=== PATIENT | female | born 1940 | race Caucasian/White ===

== ENCOUNTER → 2021-10-06 09:03 | Outpatient (CLI) | payer MEDICARE, OTHER, SELFPAY ==
--- NOTE | 2021-10-06 09:06 | DI.MG.S_ITS ---
BILATERAL DIGITAL SCREENING MAMMOGRAM 3D/2D WITH CAD: 10/06/2021 CLINICAL: Routine screening. Comparison is made to exams dated: 07/26/2020 mammogram, 07/26/2019 mammogram, 07/21/2019 mammogram, and 07/20/2018 mammogram - outside facility. There are scattered fibroglandular elements in both breasts. Current study was also evaluated with a Computer Aided Detection (CAD) system. No significant masses, calcifications, or other findings are seen in either breast. There has been no significant interval change. IMPRESSION: NEGATIVE There is no mammographic evidence of malignancy. A 1 year screening mammogram is recommended. This exam was interpreted at Station ID: [id number]. NOTE: For mammograms, a report in lay terms will be sent to the patient. Approximately 15% of breast malignancies will not be visualized mammographically. In the management of a palpable breast mass, a negative mammogram must not discourage biopsy of a clinically suspicious lesion. Electronically Signed By: Jason caballero/drew:10/06/2021 12:24:52 letter sent: Normal Exam ACR BI-RADS Category 1: Negative 3341F
== END ==
PROVIDERS: PCP Internal Medicine; Referring Provider Obstetrics & Gynecology; Visit Provider Obstetrics & Gynecology
DX: Z12.31 Encounter for screening mammogram for malignant neoplasm of breast (principal)
CPT/HCPCS: 77063; 77067

== ENCOUNTER → 2021-11-03 10:11 | Outpatient (CLI) | payer MEDICARE, OTHER, SELFPAY ==
--- NOTE | 2021-11-03 10:17 | DI.RAD.S_ITS ---
PROCEDURE: XR CHEST 2V INDICATIONS: followup left pleural effusion TECHNIQUE: 2 views of the chest were acquired. COMPARISON: None. FINDINGS: Surgical changes and devices: None. Lungs and pleura: There is a small left pleural effusion. Consildative radiopacities are present at the left lung base. No pneumothorax. Mediastinum: Mediastinal contours are normal. Heart size is normal. Bones and chest wall: No suspicious bony abnormalities. Soft tissues appear unremarkable. IMPRESSION: Small left pleural effusion and left basilar consolidation. No prior comparisons are available at the time of this dictation. Dictated by: Kaci Gonzalez M.D. on 11/03/2021 at 13:18 Approved by: Kaci Gonzalez M.D. on 11/03/2021 at 13:23
[2021-11-03 11:45] LABS: Hematocrit 34.2 % (36-46); Hemoglobin 11.7 g/dL (12.0-16.0); Mean Corpuscular HGB Conc 34.3 % (30-36); Mean Corpuscular Hemoglobin 29.3 PG (26-34); Mean Corpuscular Volume 85.6 fL (80-100); Platelet Count 187 X10^3/uL (150-400); Red Cell Distribution Width 15.6 % (11.6-14.8); White Blood Cell Count 6.5 X10^3/uL (4.5-11.0)
[2021-11-03 12:04] LABS: Alanine Aminotransferase 16 IU/L (<35); Albumin 4.5 g/dL (3.5-5.0); Albumin Globulin Ratio 1.4 (1.0-2.8); Alkaline Phosphatase 38 U/L (38-126); Aspartate Aminotransferase 15 IU/L (14-36); BUN Creatinine Ratio 21.1 (6-22); Bilirubin Total 0.9 mg/dL (0.2-1.3); Blood Urea Nitrogen 16 mg/dL (7-17); Carbon Dioxide 31 mmol/L (22-32); Chloride 104 mmol/L (98-107); Cholesterol 148 mg/dL (140-199); Estimated Glomerular Filt Rate > 60 mL/min (>60); Globulin 3.2 g/dL (1.7-4.1); Glucose 90 mg/dL (80-110); HDL Cholesterol 44 mg/dL (40-60); HEMOLYSIS < 15 (0-50); LDL Cholesterol Calculated 73 mg/dL (<100); Sodium 142 mmol/L (137-145); Total Protein 7.7 g/dL (6.3-8.2); Triglycerides 154 mg/dL (35-150)
[2021-11-03 12:22] LABS: HEMOLYSIS < 15 (0-50); Iron 65 ug/dL (37-170)
[2021-11-03 12:37] LABS: Percent Iron Saturation 23 % (15-50); Total Iron Binding Capacity 283 ug/dL (265-497); Transferrin 209 mg/dL (206-381)
[2021-11-03 12:39] LABS: Vitamin D 25 Hydroxy (D3) 46.1 ng/mL (30.0-100.0)
[2021-11-03 12:46] LABS: Vitamin B12 867 pg/mL (239-931)
== END ==
PROVIDERS: PCP Internal Medicine; Referring Provider Internal Medicine; Visit Provider Internal Medicine
DX: J90 Pleural effusion, not elsewhere classified (principal); D64.9 Anemia, unspecified; E53.8 Deficiency of other specified B group vitamins; E78.2 Mixed hyperlipidemia; I48.20 Chronic atrial fibrillation, unspecified; I10 Essential (primary) hypertension
CPT/HCPCS: 36415; 71046; 80053; 80061; 82306; 82607; 83540; 83550; 84443; 85027

== ENCOUNTER → 2022-03-11 10:45 | Outpatient (CLI) | payer MEDICARE, OTHER, SELFPAY ==
[2022-03-11 12:06] LABS: COVID19 -Nasal RAPID Negative (Negative)
--- NOTE | 2022-03-11 18:00 | DI.NM.S_ITS ---
DATE OF SERVICE: 03/11/2022 PROCEDURE PERFORMED: Pharmacologic vasodilator stress and rest myocardial perfusion imaging with gating to assess ejection fraction and regional wall motion. ORDERING PROVIDER: Dr. Ciro Bartlett. INDICATIONS: The patient is an 81-year-old female with exertional dyspnea, chronic atrial fibrillation, and known coronary artery calcification. CARDIAC STRESS: Per protocol, 0.4 mg of regadenoson was infused with a normal hemodynamic response. She had no chest discomfort or other anginal symptoms. Her resting ECG shows atrial fibrillation at 70-85 BPM with mild, nonspecific inferolateral ST-segment abnormalities that become accentuated with stress but remain nonspecific. There were no other arrhythmias. Per protocol, 26.2 millicuries of technetium-99m Myoview was injected and she was imaged 20 minutes later using a gated SPECT acquisition protocol. Earlier in the day while at rest, she had been injected with 12.2 millicuries of technetium-99m Myoview and was imaged 20 minutes later, again using a gated SPECT protocol. FINDINGS: 1. Raw data: There is fair myocardial tracer uptake with obvious breast attenuation that crosses the anterior portion of the left ventricle, more on the stress images than the resting images. There was no significant motion artifact. The lung/heart ratio is normal at 0.29. The TID ratio was normal at 1.13. 2. Quantitated gated SPECT: Post-stress ejection fraction is estimated at 69%, although gating is somewhat dyssynchronous, putting these values somewhat in question. There are no focal wall motion abnormalities and specifically the anterior wall has brisk contractility. The resting ejection fraction is estimated at 79%, although visually appears similar to the post-stress ejection fraction, again with a somewhat choppy gating sequence. Resting end-diastolic volume is normal at 84 mL. The right ventricular free wall has significant uptake of tracer which can be an indication of a right ventricular overload condition. 3. Myocardial perfusion imaging: Post-stress supine images shows a fairly normal myocardial perfusion pattern with a mild defect in the mid anterior wall, sparing the apex in a pattern that would be consistent with breast attenuation artifact, supported by its complete resolution on the prone images. The resting images show a similar perfusion pattern with a slight, but insignificant improvement. Given its resolution on the prone images, this most likely reflects breast attenuation artifact. IMPRESSION: 1. Normal myocardial perfusion study. 2. Partially reversible mid anterior defect that resolves on prone imaging, consistent with breast attenuation artifact. There is no compelling evidence for myocardial ischemia or previous myocardial infarction. 3. Probable normal left ventricular systolic function without focal wall motion abnormality and normal left ventricular volumes. There is increased tracer uptake in the right ventricular free wall which can be an indication of a right ventricular overload condition but clinical correlation is recommended. 4. No angina with pharmacologic vasodilator stress. There is mild accentuation of baseline ST-segment abnormalities but no compelling ECG evidence for myocardial ischemia. She was in atrial fibrillation throughout the study without other arrhythmias. Robert October - Celia/gloria doc#: [id number]/job#: [id number] dd: 03/11/2022 17:22:00 dt: 03/11/2022 17:47:00 DICTATING /COPIES TO: Duke Hamilton MD COPIES MNE: FANG;
== END ==
PROVIDERS: PCP Internal Medicine; Referring Provider Nurse Practitioner Family; Visit Provider Internal Medicine Cardiovascular Disease
DX: I50.32 Chronic diastolic (congestive) heart failure (principal); I25.10 Atherosclerotic heart disease of native coronary artery without angina pectoris; I25.84 Coronary atherosclerosis due to calcified coronary lesion; R06.00 Dyspnea, unspecified; I48.20 Chronic atrial fibrillation, unspecified; Z20.822 Contact with and (suspected) exposure to COVID-19
CPT/HCPCS: 78452; 87635; 93017; A9502; J2785

== ENCOUNTER → 2022-04-02 08:30 | Outpatient (CLI) | payer MEDICARE, OTHER, SELFPAY ==
[2022-04-02 11:08] LABS: BUN Creatinine Ratio 28.2 (6-22); Blood Urea Nitrogen 20 mg/dL (7-17); Calcium 8.9 mg/dL (8.4-10.2); Carbon Dioxide 24 mmol/L (22-32); Chloride 106 mmol/L (98-107); Cholesterol 155 mg/dL (140-199); Estimated Glomerular Filt Rate > 60 mL/min (>60); Glucose 107 mg/dL (80-110); HDL Cholesterol 37 mg/dL (40-60); HEMOLYSIS < 15 (0-50); LDL Cholesterol Calculated 78 mg/dL (<100); Potassium 4.3 mmol/L (3.4-5.1); Sodium 141 mmol/L (137-145); Triglycerides 199 mg/dL (35-150)
[2022-04-02 11:25] LABS: Digoxin 0.8 ng/mL (0.8-2.0)
== END ==
PROVIDERS: PCP Internal Medicine; Referring Provider Internal Medicine Cardiovascular Disease; Visit Provider Internal Medicine Cardiovascular Disease
DX: I50.32 Chronic diastolic (congestive) heart failure (principal); E78.5 Hyperlipidemia, unspecified
CPT/HCPCS: 36415; 80048; 80061; 80162

== ENCOUNTER → 2022-04-22 10:19 | Outpatient (CLI) | payer MEDICARE, OTHER, SELFPAY | PROVIDERS: PCP Internal Medicine; Visit Provider Nurse Practitioner Family | DX: R30.0 Dysuria (principal) | CPT/HCPCS: 87077; 87086; 87186 ==

== ENCOUNTER → 2022-05-20 10:33 | Outpatient (CLI) | payer MEDICARE, OTHER, SELFPAY | PROVIDERS: PCP Internal Medicine; Referring Provider Internal Medicine; Visit Provider Internal Medicine | DX: Z78.0 Asymptomatic menopausal state (principal); Z13.820 Encounter for screening for osteoporosis; M85.852 Other specified disorders of bone density and structure, left thigh; Z90.710 Acquired absence of both cervix and uterus | CPT/HCPCS: 77080 ==

== ENCOUNTER → 2022-06-16 10:23 | Outpatient (CLI) | payer MEDICARE, OTHER, SELFPAY | PROVIDERS: PCP Internal Medicine; Visit Provider Registered Nurse | DX: R30.0 Dysuria (principal) | CPT/HCPCS: 87077; 87086; 87186 ==

== ENCOUNTER → 2022-06-23 08:52 | Outpatient (CLI) | payer MEDICARE, OTHER, SELFPAY ==
[2022-06-23 09:46] LABS: Cholesterol 172 mg/dL (140-199); HDL Cholesterol 47 mg/dL (40-60); LDL Cholesterol Calculated 89 mg/dL (<100); Triglycerides 182 mg/dL (35-150)
[2022-06-23 10:03] LABS: Digoxin < 0.4 ng/mL (0.8-2.0)
== END ==
PROVIDERS: PCP Internal Medicine; Referring Provider Nurse Practitioner Family; Visit Provider Nurse Practitioner Family
DX: E78.5 Hyperlipidemia, unspecified (principal); I48.20 Chronic atrial fibrillation, unspecified; I25.10 Atherosclerotic heart disease of native coronary artery without angina pectoris; I25.84 Coronary atherosclerosis due to calcified coronary lesion
CPT/HCPCS: 36415; 80061; 80162

== ENCOUNTER → 2022-10-12 09:09 | Outpatient (CLI) | payer MEDICARE, OTHER, SELFPAY ==
--- NOTE | 2022-10-12 | DI.MG.S_ITS ---
BILATERAL DIGITAL SCREENING MAMMOGRAM 3D/2D WITH CAD: 10/12/2022 CLINICAL: Routine screening. Family history of breast cancer. Comparison is made to exams dated: 10/06/2021 mammogram - , 07/26/2020 mammogram, and 07/26/2019 mammogram - outside facility. Both breasts are heterogeneously dense, which may obscure small masses (category c / 51-75% glandular tissue). Current study was also evaluated with a Computer Aided Detection (CAD) system. No significant masses, calcifications, or other findings are seen in either breast. There has been no significant interval change. IMPRESSION: NEGATIVE There is no mammographic evidence of malignancy. A 1 year screening mammogram is recommended. Based on the Tyrer Cuzick model (a risk assessment model) the patient's lifetime risk is 0.5% and her 10 year risk is 0.0%. According to the ACR, ACS, and NCCN guidelines, an annual breast MRI exam along with mammogram is recommended if the patient's lifetime risk is 20% or greater. This exam was interpreted at Station ID: [id number]. NOTE: For mammograms, a report in lay terms will be sent to the patient. Approximately 15% of breast malignancies will not be visualized mammographically. In the management of a palpable breast mass, a negative mammogram must not discourage biopsy of a clinically suspicious lesion. Electronically Signed By: Kaci emerson/drew:10/12/2022 16:25:10 letter sent: Normal Exam ACR BI-RADS Category 1: Negative 3341F
== END ==
PROVIDERS: PCP Internal Medicine; Referring Provider Internal Medicine; Visit Provider Internal Medicine
DX: Z12.31 Encounter for screening mammogram for malignant neoplasm of breast (principal)
CPT/HCPCS: 77063; 77067

== ENCOUNTER → 2022-11-04 09:23 | Outpatient (CLI) | payer MEDICARE, OTHER, SELFPAY ==
[2022-11-04 11:14] LABS: Hematocrit 33.8 % (36-46); Hemoglobin 11.5 g/dL (12.0-16.0); Mean Corpuscular HGB Conc 34.2 % (30-36); Mean Corpuscular Hemoglobin 29.6 PG (26-34); Mean Corpuscular Volume 86.6 fL (80-100); Platelet Count 177 X10^3/uL (150-400); Red Cell Distribution Width 14.8 % (11.6-14.8); White Blood Cell Count 6.5 X10^3/uL (4.5-11.0)
[2022-11-04 11:43] LABS: Alanine Aminotransferase 17 IU/L (<35); Albumin 4.1 g/dL (3.5-5.0); Albumin Globulin Ratio 1.5 (1.0-2.8); Alkaline Phosphatase 32 U/L (38-126); Aspartate Aminotransferase 14 IU/L (14-36); BUN Creatinine Ratio 20.6 (6-22); Bilirubin Total 0.7 mg/dL (0.2-1.3); Blood Urea Nitrogen 14 mg/dL (7-17); Calcium 8.9 mg/dL (8.4-10.2); Carbon Dioxide 30 mmol/L (22-32); Chloride 103 mmol/L (98-107); Cholesterol 131 mg/dL (140-199); Estimated Glomerular Filt Rate > 60 mL/min (>60); Globulin 2.8 g/dL (1.7-4.1); Glucose 93 mg/dL (80-110); HDL Cholesterol 44 mg/dL (40-60); HEMOLYSIS < 15 (0-50); LDL Cholesterol Calculated 66 mg/dL (<100); Potassium 4.5 mmol/L (3.4-5.1); Sodium 140 mmol/L (137-145); Total Protein 6.9 g/dL (6.3-8.2); Triglycerides 103 mg/dL (35-150)
== END ==
PROVIDERS: PCP Internal Medicine; Referring Provider Internal Medicine; Visit Provider Internal Medicine
DX: D64.9 Anemia, unspecified (principal); E03.9 Hypothyroidism, unspecified; E78.2 Mixed hyperlipidemia; I10 Essential (primary) hypertension; I50.32 Chronic diastolic (congestive) heart failure
CPT/HCPCS: 36415; 80053; 80061; 84443; 85027

== ENCOUNTER → 2023-02-04 08:45 | Outpatient (CLI) | payer MEDICARE, OTHER, SELFPAY ==
[2023-02-04 10:12] LABS: Digoxin 0.4 ng/mL (0.8-2.0)
== END ==
PROVIDERS: PCP Internal Medicine; Referring Provider Internal Medicine Cardiovascular Disease; Visit Provider Internal Medicine Cardiovascular Disease
DX: I48.20 Chronic atrial fibrillation, unspecified (principal)
CPT/HCPCS: 36415; 80162

== ENCOUNTER → 2023-05-12 08:47 | Outpatient (CLI) | payer MEDICARE, OTHER, SELFPAY ==
[2023-05-12 09:29] LABS: Hematocrit 34.1 % (36-46); Hemoglobin 11.8 g/dL (12.0-16.0); Mean Corpuscular HGB Conc 34.7 % (30-36); Mean Corpuscular Volume 86.2 fL (80-100); Platelet Count 171 X10^3/uL (150-400); Red Blood Cell Count 3.95 X10^6/uL (4.0-5.2); Red Cell Distribution Width 14.5 % (11.6-14.8); White Blood Cell Count 5.8 X10^3/uL (4.5-11.0)
[2023-05-12 09:57] LABS: Blood Urea Nitrogen 18 mg/dL (7-17); Calcium 9.1 mg/dL (8.4-10.2); Carbon Dioxide 24 mmol/L (22-32); Chloride 106 mmol/L (98-107); Estimated Glomerular Filt Rate > 60 mL/min (>60); Glucose 108 mg/dL (80-110); HEMOLYSIS < 15 (0-50); Potassium 3.7 mmol/L (3.4-5.1); Sodium 140 mmol/L (137-145)
[2023-05-12 10:07] LABS: Digoxin 0.4 ng/mL (0.8-2.0)
[2023-05-12 10:39] LABS: Vitamin B12 782 pg/mL (239-931)
[2023-05-12 11:46] LABS: TSH w/ Reflex to FT4 2.13 uIU/mL (0.47-4.68)
== END ==
PROVIDERS: PCP Internal Medicine; Referring Provider Internal Medicine; Visit Provider Internal Medicine
DX: I48.20 Chronic atrial fibrillation, unspecified (principal); D64.9 Anemia, unspecified; E03.9 Hypothyroidism, unspecified; E53.8 Deficiency of other specified B group vitamins
CPT/HCPCS: 36415; 80048; 80162; 82607; 84443; 85027

== ENCOUNTER → 2023-10-20 14:02 | Outpatient (CLI) | payer MEDICARE, OTHER, SELFPAY ==
--- NOTE | 2023-10-20 14:03 | DI.MG.S_ITS ---
BILATERAL DIGITAL SCREENING MAMMOGRAM 3D/2D WITH CAD: 10/20/2023 CLINICAL: Routine screening. Family history of breast cancer. Comparison is made to exams dated: 10/12/2022 mammogram, 10/06/2021 mammogram - [facility], and 07/26/2020 mammogram - outside facility. Both breasts are heterogeneously dense, which may obscure small masses (category c / 51-75% glandular tissue). Current study was also evaluated with a Computer Aided Detection (CAD) system. No significant masses, calcifications, or other findings are seen in either breast. There has been no significant interval change. IMPRESSION: NEGATIVE There is no mammographic evidence of malignancy. A 1 year screening mammogram is recommended. Based on the Tyrer Cuzick model (a risk assessment model) the patient's lifetime risk is 0.3% and her 10 year risk is 0.0%. According to the ACR, ACS, and NCCN guidelines, an annual breast MRI exam along with mammogram is recommended if the patient's lifetime risk is 20% or greater. This exam was interpreted at Station ID: [id number]. NOTE: For mammograms, a report in lay terms will be sent to the patient. Approximately 15% of breast malignancies will not be visualized mammographically. In the management of a palpable breast mass, a negative mammogram must not discourage biopsy of a clinically suspicious lesion. Electronically Signed By: Kaci emerson/drew:10/20/2023 16:25:52 letter sent: Normal Exam ACR BI-RADS Category 1: Negative 3341F
== END ==
LOC: MAMMO 14:03
PROVIDERS: PCP Internal Medicine; Referring Provider Internal Medicine; Visit Provider Internal Medicine
DX: Z12.31 Encounter for screening mammogram for malignant neoplasm of breast (principal); Z80.3 Family history of malignant neoplasm of breast; R92.333 Mammographic heterogeneous density, bilateral breasts
CPT/HCPCS: 77063; 77067

== ENCOUNTER → 2023-11-15 09:09 | Outpatient (CLI) | payer MEDICARE, OTHER, SELFPAY ==
--- NOTE | 2023-11-15 09:11 | DI.RAD.S_ITS ---
PROCEDURE: XR CHEST 2V INDICATIONS: dyspnea TECHNIQUE: 2 views of the chest were acquired. COMPARISON: [facility], CR, XR CHEST 2V, 11/03/2021, 10:37. FINDINGS: Surgical changes and devices: None. Lungs and pleura: Lungs are clear. No pleural effusions or pneumothorax. Mediastinum: Mediastinal contours are normal. Heart size is enlarged. Bones and chest wall: No suspicious bony abnormalities. Soft tissues appear unremarkable. IMPRESSION: No acute pulmonary process. Dictated by: Juli Stone M.D. on 11/15/2023 at 15:29 Approved by: Juli Stone M.D. on 11/15/2023 at 15:30
[2023-11-15 10:54] LABS: Hematocrit 33.8 % (36-46); Hemoglobin 11.5 g/dL (12.0-16.0); Mean Corpuscular HGB Conc 34.1 % (30-36); Mean Corpuscular Hemoglobin 29.6 PG (26-34); Mean Corpuscular Volume 86.7 fL (80-100); Platelet Count 167 X10^3/uL (150-400); Red Blood Cell Count 3.89 X10^6/uL (4.0-5.2); White Blood Cell Count 5.4 X10^3/uL (4.5-11.0)
[2023-11-15 11:17] LABS: Digoxin 0.5 ng/mL (0.8-2.0); HEMOLYSIS < 15 (0-50); Iron 67 ug/dL (37-170)
[2023-11-15 11:25] LABS: Percent Iron Saturation 25 % (15-50); Total Iron Binding Capacity 268 ug/dL (265-497); Transferrin 197 mg/dL (206-381)
[2023-11-15 11:47] LABS: TSH w/ Reflex to FT4 1.76 uIU/mL (0.47-4.68)
[2023-11-15 12:24] LABS: Alanine Aminotransferase 17 IU/L (<35); Albumin 4.3 g/dL (3.5-5.0); Albumin Globulin Ratio 1.6 (1.0-2.8); Alkaline Phosphatase 39 U/L (38-126); Aspartate Aminotransferase 16 IU/L (14-36); BUN Creatinine Ratio 24.4 (6-22); Bilirubin Total 0.9 mg/dL (0.2-1.3); Blood Urea Nitrogen 19 mg/dL (7-17); Calcium 8.6 mg/dL (8.4-10.2); Carbon Dioxide 28 mmol/L (22-32); Chloride 106 mmol/L (98-107); Cholesterol 139 mg/dL (140-199); Estimated Glomerular Filt Rate > 60 mL/min (>60); Globulin 2.7 g/dL (1.7-4.1); Glucose 87 mg/dL (80-110); HDL Cholesterol 48 mg/dL (40-60); HEMOLYSIS < 15 (0-50); LDL Cholesterol Calculated 68 mg/dL (<100); Potassium 4.1 mmol/L (3.4-5.1); Sodium 141 mmol/L (137-145); Triglycerides 115 mg/dL (35-150)
[2023-11-15 13:03] LABS: Ferritin 155 ng/mL (11-264)
[2023-11-15 13:18] LABS: Vitamin B12 847 pg/mL (239-931)
== END ==
PROVIDERS: PCP Internal Medicine; Referring Provider Internal Medicine; Visit Provider Internal Medicine
DX: I50.32 Chronic diastolic (congestive) heart failure (principal); J90 Pleural effusion, not elsewhere classified; E03.9 Hypothyroidism, unspecified; E78.2 Mixed hyperlipidemia; I48.20 Chronic atrial fibrillation, unspecified; E53.8 Deficiency of other specified B group vitamins; D50.9 Iron deficiency anemia, unspecified
CPT/HCPCS: 36415; 71046; 80053; 80061; 80162; 82607; 82728; 83540; 83550; 84443; 85027

== ENCOUNTER 2024-07-23 14:27 | Emergency (ER) | payer MEDICARE, OTHER, SELFPAY ==
[2024-07-23 14:51] VITALS: BP 129/58; PULSE 82; RESP 16; TEMP 35.7; O2SAT 99; BMI 23.5
--- NOTE | 2024-07-23 14:56 | DI.RAD.S_ITS ---
PROCEDURE: XR KNEE RT 3V INDICATIONS: unable to stand; atraumatic TECHNIQUE: 3 views of the knee were acquired. COMPARISON: None. FINDINGS: Bones: No fractures or dislocations. No suspicious bony lesions. Patellofemoral severe joint space narrowing particularly involving the lateral facet Soft tissues: Large joint effusion. No suspicious soft tissue calcifications. IMPRESSION: Patellofemoral arthritic joint space narrowing and large joint effusion Approved by: Jean-Pierre Cade M.D. on 07/23/2024 at 14:44
--- NOTE | 2024-07-23 14:57 | DI.US.S_ITS ---
PROCEDURE: US PERIPH VENOUS LOW EXTREM RT INDICATIONS: POSTERIOR RT KNEE PAIN TECHNIQUE: Real-time imaging, as well as color and pulse Doppler interrogation, were performed of the lower extremity deep veins from the inguinal ligament to the popliteal fossa, with documentation of the visualized calf veins. COMPARISON: None. FINDINGS: The common femoral, femoral, popliteal, and the visualized calf veins are normally compressible, and free of intraluminal thrombus. Color and pulse Doppler demonstrate normal phasic intraluminal flow. There is normal augmentation response to distal compression maneuver. IMPRESSION: No findings of lower extremity deep venous thrombosis. Approved by: Jean-Pierre Cade M.D. on 07/23/2024 at 14:41
[2024-07-23 17:45] VITALS: PULSE 80; RESP 20
[2024-07-23 17:46] VITALS: BP 165/76; PULSE 79; RESP 19; O2SAT 100
[2024-07-23 18:00] VITALS: BP 174/66; PULSE 79; RESP 19; O2SAT 99
[2024-07-23 18:03] VITALS: PULSE 80
--- NOTE | 2024-07-23 18:26 | ED_ITS ---
HPI - Extremity Problem General Chief complaint: Extremity Problem,Nontraumatic Stated complaint: Injured Right Knee Time Seen by Provider: 07/23/24 18:25 Source: patient and family Mode of arrival: Wheelchair History of Present Illness HPI Narrative: 83-year-old female past medical history of CHF AFib on Eliquis COPD not on chronic supplemental oxygen, hyperlipidemia hypertension comes into the ED from home with family for evaluation of knee pain leg swelling states that she injured her knee approximately a week ago, states it is the taken Tylenol but was only having mild relief states that it got worse yesterday and now states she feels like she is unable to bear weight on it. She states that this happened when she is good from seated position yesterday states that she felt like there was a pop to her right knee. She states that since then she has had worsening pain to the right knee. He denies any numbness weakness tingling to the leg itself. Has been compliant with her Eliquis. Denies any other injuries no falls no other symptoms at this time Related Data Home Medications Medication Instructions Recorded Confirmed apixaban 5 mg tablet (Eliquis) 5 mg PO BID 09/02/21 07/12/24 mecobalamin (vitamin B12) 1,000 1,000 mcg PO 3XW 09/02/21 07/12/24 mcg chewable tablet atorvastatin 20 mg tablet 20 mg PO DAILY 05/06/22 07/12/24 digoxin 125 mcg (0.125 mg) tablet 125 mcg PO Q OTHER DAY 05/06/22 07/12/24 cholecalciferol (vitamin D3) 25 25 mcg PO DAILY 11/04/22 07/12/24 mcg (1,000 unit) capsule Previous Rx's Medication Instructions Recorded candesartan 32 mg tablet 32 mg PO DAILY #90 tabs 11/03/21 carvedilol 12.5 mg tablet 12.5 mg PO BID #180 tabs 02/04/22 albuterol sulfate 90 mcg/actuation 2 puff inhalation Q6H PRN 05/06/22 aerosol inhaler shortness of breath or wheezing #25.5 grams tiotropium bromide 2.5 2 puff inhalation DAILY PRN 05/12/23 mcg/actuation mist for inhalation COPD/bronchiectasis #12 grams (Spiriva Respimat) fluoxetine 20 mg capsule 20 mg PO DAILY #90 caps 12/22/23 torsemide 10 mg tablet 10 mg PO DAILY #90 tabs 05/18/24 levothyroxine 25 mcg tablet 25 mcg PO DAILY #90 tabs 07/10/24 Allergies Allergy/AdvReac Type Severity Reaction Status Date / Time No Known Drug Allergies Allergy Verified 07/12/24 09:18 Review of Systems Review of Systems Narrative: General: Denies fever, chills, weight loss HEENT: Denies headache, eye drainage, eye irritation, head trauma, sore throat, voice change Cardiovascular: Denies any chest pain, palpitations, shortness of breath, tachycardia Respiratory: Denies any shortness of breath, cough, wheeze, stridor GI/: Denies any abdominal pain, nausea, vomiting, diarrhea, bright red blood per rectum, melanotic stools, urinary frequency, urinary retention, dysuria, hematuria MSK: Positive right knee swelling pain Skin: Denies any rashes, lesions, discoloration Neuro: Denies any headache, lightheadedness, dizziness, fainting, weakness Psych: Denies SI/HI Patient History Medical History Abnormal chest xray Acquired hypothyroidism Anemia, unspecified Asthma B12 deficiency Bronchiectasis Chronic atrial fibrillation Chronic diastolic CHF (congestive heart failure), NYHA class 1 COPD (chronic obstructive pulmonary disease) Coronary atherosclerosis Depression Depression, major, recurrent Essential hypertension Hearing loss History of colonic polyps Measles Mitral regurgitation Mixed hyperlipidemia Mumps Osteopenia Pleural effusion, left Primary osteoarthritis involving multiple joints Surgical History Anesthesia History of hysterectomy (~04/2016) History of tonsillectomy and adenoidectomy (~194) Family History Grandmother Diabetes mellitus Social History details: (Raul) 04/16, three grown children, 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[place], retired RN Smoking Status: Former smoker Smoking Status: Former smoker Exam Narrative Exam Narrative: General: Cooperative, comfortable, well-developed, not in acute distress HEENT: Normocephalic, atraumatic, PERRLA, normal sclera, eyelids normal, Neck: Active full range of motion, atraumatic Chest: Normal to inspection, negative crepitus, no overlying erythema ecchymosis Respiratory: Normal respiratory effort, not in acute respiratory distress, clear to auscultation bilaterally negative cough, wheeze, tachypnea, rhonchi, rales Cardiology: Regular rate rhythm negative gallop, murmur, rubs GI/: Normal to inspection, soft, nonrigid, no tenderness to palpation, exam deferred MSK: Patient with decreased active passive range of motion of the right knee secondary to pain but no micro motion tenderness no overlying erythema ecchymosis neurovascularly intact palpable pulses dorsalis pedis and posterior tibialis Skin: No rashes lesions noted Neuro: Alert awake oriented x3, moves all 4 extremities spontaneously, cranial nerves intact, able to answer all questions appropriately follows commands appropriately Psych: Cooperative, negative suicidal or homicidal ideations Initial Vital Signs Initial Vital Signs: Vital Signs Temperature 96.3 F L 07/23/24 14:51 Pulse Rate 82 07/23/24 14:51 Respiratory Rate 16 07/23/24 14:51 Blood Pressure 129/58 L 07/23/24 14:51 Pulse Oximetry 99 07/23/24 14:51 Oxygen Delivery Method Room Air 07/23/24 14:51 Course Orders Ordered: ED Orders 07/23/24 14:56 XR knee RT 3V Stat 07/23/24 14:57 US periph venous low extrem rt Stat Vital Signs Vital signs: Vital Signs - 8 hr 07/23/24 14:51 07/23/24 17:45 07/23/24 17:46 Temperature 96.3 F L Pulse Rate 82 80 79 Pulse Rate [Right Posterior Tibial] Respiratory Rate 16 20 19 Blood Pressure 129/58 L Pulse Oximetry 99 100 Oxygen Delivery Method Room Air 07/23/24 17:46 07/23/24 18:00 07/23/24 18:00 Temperature Pulse Rate 79 Pulse Rate [Right Posterior Tibial] Respiratory Rate 19 Blood Pressure 165/76 H 174/66 H Pulse Oximetry 99 Oxygen Delivery Method 07/23/24 18:03 Temperature Pulse Rate Pulse Rate [Right Posterior Tibial] 80 Respiratory Rate Blood Pressure Pulse Oximetry Oxygen Delivery Method MDM - Extremity (Nontraumatic) Differential Diagnosis Differential diagnosis: Likely other (DVT, fracture, ligamentous tear) Imaging Data Extremity x-ray #1: Radiologist's Impression: [address] [address] XRay Report Signed Patient: Barbara Jones MR#: [id number] : 1940 Acct:[id number] Age/Sex: 83 / F Date of Service: 07/23/24 Loc: ED Accession Number: [id number] Procedure: XR knee RT 3V Ordering Provider: Melissa Pratt D.O. PROCEDURE: XR KNEE RT 3V INDICATIONS: unable to stand; atraumatic TECHNIQUE: 3 views of the knee were acquired. COMPARISON: None. FINDINGS: Bones: No fractures or dislocations. No suspicious bony lesions. Patellofemoral severe joint space narrowing particularly involving the lateral facet Soft tissues: Large joint effusion. No suspicious soft tissue calcifications. IMPRESSION: Patellofemoral arthritic joint space narrowing and large joint effusion US - DVT: Radiologist's Impression: [address] [address] Ultrasound Report Signed Patient: Barbara Jones MR#: [id number] : 1940 Acct:[id number] Age/Sex: 83 / F Date of Service: 07/23/24 Loc: ED Accession Number: [id number] Procedure: US periph venous low extrem rt Ordering Provider: Melissa Pratt D.O. PROCEDURE: US PERIPH VENOUS LOW EXTREM RT INDICATIONS: POSTERIOR RT KNEE PAIN TECHNIQUE: Real-time imaging, as well as color and pulse Doppler interrogation, were performed of the lower extremity deep veins from the inguinal ligament to the popliteal fossa, with documentation of the visualized calf veins. COMPARISON: None. FINDINGS: The common femoral, femoral, popliteal, and the visualized calf veins are normally compressible, and free of intraluminal thrombus. Color and pulse Doppler demonstrate normal phasic intraluminal flow. There is normal augmentation response to distal compression maneuver. IMPRESSION: No findings of lower extremity deep venous thrombosis. MDM Narrative Medical decision making narrative: 83-year-old female with a history of AFib on Eliquis CHF hypertension hyperlipidemia COPD not requiring supplemental oxygen at baseline, hypothyroidism presents for right knee pain. States that she has been having intermittent knee pain swelling for the past week had some improvement with Tylenol but last night stood up and felt a ?pop to her right knee. She states that she had immediate pain in that area, has been unable to bear weight since then. But she denies falling. She denies any numbness weakness tingling to the lower extremity. On exam decreased active and passive range of motion of the right knee secondary to pain but no micro motion tenderness no overlying erythema ecchymosis. Patient had x-ray of the knee showing swelling but no fracture. Ultrasound without DVT. Patient without any signs symptoms of compartment syndrome, septic arthritis. Patient is afebrile neurovascularly intact lower extremity. She will be sent home in a knee immobilizer and instructed follow up with Orthopedic surgery in outpatient setting per granddaughter will be staying with her to help her get around her house. She was given strict return precautions she verbalized understanding of this and agrees to being discharged home with outpatient follow up Discharge Plan Departure Patient Disposition: Home Clinical Impression: Acute pain of right knee Instructions: How to Use a Knee Immobilizer Activity Restrictions/Additional Instructions: Please follow up with Orthopedic surgery and primary care Please read the discharge instructions sheet carefully and bring all papers to all doctor follow-up visits, as it may contain information that your doctor may want to see. Disease processes change and evolve, if your symptoms worsen or if you develop any new symptoms that are concerning to you please return for evaluation. Your evaluation today does not show any evidence of any life- threatening/serious illnesses requiring admission to the hospital or surgery. Please follow-up with your doctor for re-evaluation in approximately 1 day. Seek immediate medical attention for any worrisome symptoms. *If you do not have a primary care provider please contact the [facility] Resource line at [phone]. They will ask some questions about your medical history and help get you set up with a doctor in the community. Prescriptions: No Action fluoxetine 20 mg capsule 20 mg PO DAILY Qty: 90 3RF torsemide 10 mg tablet 10 mg PO DAILY Qty: 90 3RF levothyroxine 25 mcg tablet 25 mcg PO DAILY Qty: 90 3RF carvedilol 12.5 mg tablet 12.5 mg PO BID Qty: 180 3RF Rx Instructions: must administer with a meal/food candesartan 32 mg tablet 32 mg PO DAILY Qty: 90 3RF Eliquis 5 mg tablet 5 mg PO BID mecobalamin (vitamin B12) 1,000 mcg tablet,chewable 1,000 mcg PO 3XW atorvastatin 20 mg tablet 20 mg PO DAILY digoxin 125 mcg (0.125 mg) tablet 125 mcg PO Q OTHER DAY albuterol sulfate 90 mcg/actuation HFA aerosol inhaler 2 puff inhalation Q6H PRN (Reason: shortness of breath or wheezing) Qty: 25.5 3RF cholecalciferol (vitamin D3) 25 mcg (1,000 unit) capsule 25 mcg PO DAILY Spiriva Respimat 2.5 mcg/actuation mist 2 puff inhalation DAILY PRN (Reason: COPD/bronchiectasis) Qty: 12 3RF Referrals: Sly Vila MD [Primary Care Provider] - Aleksandr Borrego MD [Physician] - Stand Alone Forms: Patient Portal/API/Survey
[2024-07-23 19:23] VITALS: PULSE 78; RESP 18; O2SAT 97
== END 2024-07-23 19:30 | disposition home or self-care (01) ==
PROVIDERS: Emergency Provider Student in an Organized Health Care Education/Training Program; PCP Internal Medicine
DX: M25.561 Pain in right knee (principal); I48.91 Unspecified atrial fibrillation; Z79.01 Long term (current) use of anticoagulants; I50.9 Heart failure, unspecified; E78.5 Hyperlipidemia, unspecified; I10 Essential (primary) hypertension
CPT/HCPCS: 73562; 93971; 99282; 99283

== ENCOUNTER → 2024-07-26 15:39 | Outpatient (CLI) | payer MEDICARE, OTHER, SELFPAY ==
--- NOTE | 2024-07-26 15:41 | DI.MRI.S_ITS ---
PROCEDURE: MR KNEE RT WO CON INDICATIONS: R/O MENISCUS TEAR RIGHT KNEE TECHNIQUE: Noncontrast sagittal PD fast spin echo and T2 fast spin echo with fat saturation, sagittal 3-D FLASH with fat saturation; coronal T1 spin echo and PD fast spin echo with fat saturation, and axial PD fast spin echo with fat saturation through the knee. COMPARISON: None. FINDINGS: Image quality: Excellent. Menisci: In the medial meniscus, there is full-thickness radial tear of the posterior root (10:18). Additional small radial tear of the inner margin the medial meniscus body. Extrusion the medial meniscus body. The lateral meniscus is unremarkable. Cruciate ligaments: The anterior and posterior cruciate ligaments appear intact. Medial structures: Grade 1 sprain of the MCL. Lateral structures: The lateral collateral ligament, long and short heads of the biceps femoris tendon appear intact. The popliteus tendon appears normal; the popliteofibular ligament appears intact. The posterosuperior and anteroinferior popliteomeniscal fascicles appear intact. The arcuate and fabellofibular ligaments appear intact, on either side of the lateral inferior geniculate artery. Iliotibial band appears normal. Anterior structures: The quadriceps and patellar tendons appear intact. Superolateral Hoffa's fat pad edema, raising concern for patellar maltracking. Mild lateral tilt the patella. The medial and the lateral patellofemoral ligament are intact Bones and cartilage: In the patellofemoral compartment, there is full-thickness chondral denudation in the lateral patellar facet, with mild subchondral marrow edema. There is large area full-thickness chondral denudation in the lateral trochlea, with mild subchondral marrow edema. In the medial compartment, there is mild chondral irregularity in the weight-bearing portion of the medial condyle. In the lateral compartment, there is mild chondral thinning in the weight-bearing portion of the lateral femoral condyle. There is mild subchondral marrow edema at the tibial eminence, favor reactive. No acute fracture. Joint space: Moderate knee effusion with synovitis. No popliteal cyst. 6 mm T1 and T2 hypointense lesion posterior to the medial tibial plateau, concerning for loose body. Diffuse subcutaneous edema of the knee, most pronounced in the anterior knee. IMPRESSION: 1. Full-thickness radial tear of the posterior root of the medial meniscus. Reactive marrow edema in the tibial eminence. 2. Grade 1 sprain of the MCL. 3. Findings suggestive of patellar maltracking. 4. Severe, patellofemoral compartment predominant chondrosis. 5. Moderate knee effusion with synovitis. 6 mm loose body posterior to the medial tibial plateau. Dictated by: Ann Paz M.D. on 07/26/2024 at 16:48 Approved by: Ann Paz M.D. on 07/26/2024 at 16:59
== END ==
PROVIDERS: PCP Internal Medicine; Referring Provider Physician Assistant; Visit Provider Physician Assistant
DX: S83.241A Other tear of medial meniscus, current injury, right knee, initial encounter (principal); S83.411A Sprain of medial collateral ligament of right knee, initial encounter; M94.261 Chondromalacia, right knee; M25.461 Effusion, right knee; M65.961 Unspecified synovitis and tenosynovitis, right lower leg; X58.XXXA Exposure to other specified factors, initial encounter
CPT/HCPCS: 73721

== ENCOUNTER → 2024-08-24 08:05 | Outpatient (CLI) | payer MEDICARE, OTHER, SELFPAY ==
[2024-08-24 08:28] LABS: Hematocrit 33.8 % (36-46); Hemoglobin 11.4 g/dL (12.0-16.0); Mean Corpuscular HGB Conc 33.6 % (30-36); Mean Corpuscular Hemoglobin 28.6 PG (26-34); Mean Corpuscular Volume 85.1 fL (80-100); Platelet Count 178 X10^3/uL (150-400); Red Blood Cell Count 3.97 X10^6/uL (4.0-5.2); Red Cell Distribution Width 14.9 % (11.6-14.8)
[2024-08-24 08:58] LABS: Digoxin 0.6 ng/mL (0.8-2.0)
[2024-08-24 09:15] LABS: Aspartate Aminotransferase 15 IU/L (14-36); BUN Creatinine Ratio 23.1 (6-22); Blood Urea Nitrogen 18 mg/dL (7-17); Calcium 9.3 mg/dL (8.4-10.2); Carbon Dioxide 24 mmol/L (22-32); Chloride 103 mmol/L (98-107); Cholesterol 149 mg/dL (140-199); Estimated Glomerular Filt Rate > 60 mL/min (>60); Glucose 101 mg/dL (80-110); HDL Cholesterol 45 mg/dL (40-60); HEMOLYSIS < 15 (0-50); LDL Cholesterol Calculated 77 mg/dL (<100); Potassium 4.2 mmol/L (3.4-5.1); Sodium 139 mmol/L (137-145); Triglycerides 134 mg/dL (35-150)
[2024-08-24 10:03] LABS: TSH w/ Reflex to FT4 1.88 uIU/mL (0.47-4.68)
== END ==
PROVIDERS: PCP Internal Medicine; Referring Provider Internal Medicine; Visit Provider Internal Medicine
DX: D64.9 Anemia, unspecified (principal); E03.9 Hypothyroidism, unspecified; I50.32 Chronic diastolic (congestive) heart failure; E78.2 Mixed hyperlipidemia
CPT/HCPCS: 36415; 80048; 80061; 80162; 84443; 84450; 85027

== ENCOUNTER → 2024-11-13 11:39 | Outpatient (CLI) | payer MEDICARE, OTHER, SELFPAY ==
--- NOTE | 2024-11-13 11:40 | DI.MG.S_ITS ---
MM screening mammo BI: 11/13/2024. BI-RADS: 1 CLINICAL: 84-year old female for bilateral screening mammogram. No Tyrer-Cuzick risk score calculation due to patient's age being over 85 years old. No personal or first-degree family history of breast cancer. Current reported family history of breast cancer: maternal aunt's daughter. PRIOR EXAMS 10/20/2023, 10/12/2022, 10/06/2021. MAMMOGRAPHY TECHNIQUE: 2D and 3D (tomosynthesis) digital mammographic views obtained, with additional images as needed for full coverage. Current study was also evaluated with a Computer Aided Detection (CAD) system. DENSITY C. The breasts are heterogeneously dense, which may obscure small masses. MAMMOGRAPHY FINDINGS Bilateral: No suspicious mass, asymmetry, microcalcification, or other abnormality seen. IMPRESSION: * No evidence of malignancy. RECOMMENDATIONS Bilateral * Annual screening mammography. OVERALL ASSESSMENT CATEGORY BI-RADS-1: Negative. The [employer] recommends annual screening mammography beginning at age 40 for women with average risk of breast cancer. ELECTRONICALLY SIGNED: Jason Garcia M.D. on 11/13/2024 at 04:48:56 PM PT Interpreting Station ID: [id number]
== END ==
LOC: MAMMO 11:40
PROVIDERS: PCP Internal Medicine; Referring Provider Internal Medicine; Visit Provider Internal Medicine
DX: Z12.31 Encounter for screening mammogram for malignant neoplasm of breast (principal); Z80.3 Family history of malignant neoplasm of breast; R92.333 Mammographic heterogeneous density, bilateral breasts
CPT/HCPCS: 77063; 77067

== ENCOUNTER → 2025-03-02 08:07 | Outpatient (CLI) | payer MEDICARE, OTHER, SELFPAY ==
--- NOTE | 2025-03-02 08:09 | DI.ECHO.S_ITS ---
[facility] : : [id number] : [facility] : : [place], : : [place] [address] : : Phone: [phone] Echocardiogram Report + + :Name: NELIDA OCTOBER Study Date: 03/02/2025 Height: 64 in : :[facility] ReadingLocation: Weight: 133 lb : : Gender: Female BSA: 1.6 m2 : :: 1940 Age: 84 yrs BP: 108/43 mmHg: :Reason For Study: NONRHEUMATIC MITRAL VALVE REGURGITATION : :Ordering Physician: MARIPOSA, : :MARIANNE Performed By: Lv Weiss : :Referring: MARIANNE MONGE : + + Interpretation Summary The patient was in atrial fibrillation with heart rates between 56-85 bpm during the exam. The left ventricle is normal in size. The left ventricular ejection fraction is normal. The ejection fraction is estimated to be 60-65%. The right ventricle is normal in size and function. There is mild to moderate mitral regurgitation. Compared to the prior echo study, there has been no change in the severity of mitral regurgitation. There is mild to moderate tricuspid regurgitation. Compared to the prior echo exam, there has been no change in TR severity. The right ventricular systolic pressure is estimated to be at least 44 mmHg based on an estimated right atrial pressure of 8 mm Hg. Previously 33 mmHg. Procedure: A two-dimensional transthoracic echocardiogram with color flow and Doppler was performed. The study quality was technically good. Comparison is made with the echocardiogram of 02/03/2023. The patient was in atrial fibrillation with heart rates between 56-85 bpm during the exam. Left Ventricle: The left ventricle is normal in size. There is normal left ventricular wall thickness. There is no thrombus. The ejection fraction is estimated to be 60-65%. The left ventricular ejection fraction is normal. There are no focal wall motion abnormalities. Diastolic function could not be accurately assessed due to atrial fibrillation. Right Ventricle: The right ventricle is normal in size and function. There has been no significant change since the previous study. Atria: The left atrium is severely dilated. There has been no significant change since the previous study. Right atrial size is normal. There is no Doppler evidence for an atrial septal defect. Mitral Valve: There is moderate to severe mitral annular calcification. The mitral valve leaflets are mildly calcified. No significant mitral valve stenosis. There is mild to moderate mitral regurgitation. Compared to the prior echo study, there has been no change in the severity of mitral regurgitation. Aortic Valve: The aortic valve is trileaflet. The aortic valve opens well. The aortic valve is mildly calcified. There is no aortic valve stenosis. No aortic regurgitation is present. Tricuspid Valve: Tricuspid leaflets are thickened. There is mild to moderate tricuspid regurgitation. The right ventricular systolic pressure is estimated to be at least 44 mmHg based on an estimated right atrial pressure of 8 mm Hg. Compared to the prior echo exam, there has been no change in TR severity. Pulmonic Valve: The pulmonic valve leaflets are thin and pliable; valve motion is normal. There is no pulmonic valvular regurgitation. Great Vessels: The aortic root is normal size. The dimensions of the ascending aorta are normal. The pulmonary artery is normal size. The IVC is dilated (diameter is greater than 2.1 cm) yet it collapses greater than 50% with a sniff. This suggests a right atrial pressure of 8 mm Hg. Pericardium/ Pleura There is no pericardial effusion. There is no pleural effusion. MMode/2D Measurements & Calculations LVIDd: 4.8 cm AoV Openin.4 cm LVIDs: 3.2 cm LVOT diam: 1.7 cm IVSd: 0.85 cm Ao root diam: 2.6 cm LVPWd: 0.83 cm asc Aorta Diam: 2.7 cm LV downing. diameter/BSA (cm/m^2): 2.9 LV sys. diameter/BSA (cm/m^2): 1.9 FS: 34.2 % EPSS: 0.76 cm LA A2 area: 26.7 cm2 RA long axis: 5.6 cm LA A4 area: 28.3 cm2 RA area: 14.6 cm2 LA length (vol): 6.6 cm RA vol: 32.2 ml LA vol: 97.1 ml RA : 19.6 ml/m2 LA vol index: 59.0 ml/m2 RVD1 (basal): 2.8 cm IVC diam: 2.1 cm RVD2 (mid): 2.1 cm TAPSE: 1.9 cm Doppler Measurements & Calculations Ao V2 max: 166.2 cm/sec LVOT Max Ricky: 88.6 cm/sec Ao V2 mean: 118.8 cm/sec LV V1 max P.1 mmHg Ao V2 VTI: 38.0 cm LV V1 VTI: 18.6 cm Ao max P.0 mmHg Ao mean P.2 mmHg THANIA(I,D): 1.0 cm2 MV E max ricky: 120.4 cm/sec THANIA(V,D): 1.1 cm2 MV A max ricky: 27.7 cm/sec THANIA indexed to BSA (cm^2/m^2): 0.64 MV E/A: 4.3 sev ratio: 0.49 Med Peak E' Ricky: 8.5 cm/sec E/E' med: 14.1 Lat Peak E' Ricky: 8.6 cm/sec E/E' lat: 14.0 E/e' average: 14.1 MV dec time: 0.19 sec TR max ricky: 298.3 cm/sec TR max P.6 mmHg PA V2 max: 107.8 cm/sec SV(LVOT): 39.9 ml PA V2 mean: 77.3 cm/sec PA mean P.6 mmHg PA pr(Accel): 46.5 mmHg Reading Physician:12:44 PM
== END ==
PROVIDERS: PCP Internal Medicine; Referring Provider Internal Medicine; Visit Provider Internal Medicine Cardiovascular Disease
DX: I08.1 Rheumatic disorders of both mitral and tricuspid valves (principal)
CPT/HCPCS: 93306